=== PATIENT | female | born 1950 | race Caucasian/White ===

== ENCOUNTER → 2016-10-18 | Outpatient (CLI) | payer BC | LOC: VAS 16:11 | DX: R06.00 Dyspnea, unspecified (principal); R07.89 Other chest pain ==

== ENCOUNTER → 2016-11-02 | Outpatient (CLI) | payer BC | LOC: CARDREHAB 07:35 | DX: R06.09 Other forms of dyspnea (principal); R07.89 Other chest pain; E78.00 Pure hypercholesterolemia, unspecified | CPT/HCPCS: A9500 ==

== ENCOUNTER → 2016-11-06 | Outpatient (CLI) | payer BC | LOC: RAD 14:24 | DX: R06.09 Other forms of dyspnea (principal) ==

== ENCOUNTER → 2017-02-08 | Outpatient (CLI) | payer BC | LOC: RAD 10:01 | DX: M32.8 Other forms of systemic lupus erythematosus (principal); J98.4 Other disorders of lung ==

== ENCOUNTER → 2017-02-27 | Outpatient (CLI) | payer BC | LOC: LAB 11:01 → EDSTATUS 03-19 08:28 | DX: M35.9 Systemic involvement of connective tissue, unspecified (principal) ==

== ENCOUNTER → 2017-03-13 | Outpatient (REF) | LOC: LAB 14:19 | DX: K90.89 Other intestinal malabsorption (principal); D50.9 Iron deficiency anemia, unspecified ==

== ENCOUNTER → 2018-09-25 | Outpatient (CLI) | payer MEDICARE, BC ==
[2018-09-25 11:59] LABS: ALBUMIN 4.2 g/dL (3.5-5.0); DIRECT BILIRUBIN 0.4 mg/dL (0.0-0.4); TOTAL BILIRUBIN 0.4 mg/dL (0.2-1.3); TOTAL PROTEIN 7.3 g/dL (6.3-8.2)
== END ==
LOC: LAB 11:13
PROVIDERS: Internal Medicine
DX: E78.2 Mixed hyperlipidemia (principal); R94.5 Abnormal results of liver function studies

== ENCOUNTER → 2018-11-17 | Outpatient (CLI) | payer MEDICARE, BC | LOC: RAD 18:16 | DX: M25.551 Pain in right hip (principal); W19.XXXA Unspecified fall, initial encounter ==

== ENCOUNTER → 2018-12-03 | Outpatient (CLI) | payer MEDICARE, BC | LOC: RAD 06:46 | DX: M17.11 Unilateral primary osteoarthritis, right knee (principal) ==

== ENCOUNTER 2019-02-19 11:30 | Outpatient (RCR) | payer MEDICARE, BC | END 2019-03-12 | LOC: PT | DX: S76.011A Strain of muscle, fascia and tendon of right hip, initial encounter (principal) ==

== ENCOUNTER → 2019-04-13 | Outpatient (CLI) | payer MEDICARE, BC ==
[2019-04-13 14:06] LABS: URINE APPEARANCE CLOUDY; URINE BILIRUBIN NEGATIVE (NEGATIVE); URINE BLOOD TRACE (NEGATIVE); URINE COLOR YELLOW; URINE GLUCOSE NEGATIVE (NEGATIVE); URINE KETONE NEGATIVE (NEGATIVE); URINE LEUKOCYTE ESTERASE 2+ (NEGATIVE); URINE MUCUS PRESENT (NOT PRESENT); URINE NITRATE NEGATIVE (NEGATIVE); URINE PROTEIN(semi-quant) 1+ mg/dL (NEGATIVE); URINE UROBILINOGEN NORMAL (NORMAL); URINE WBC >50 /hpf (0-3)
== END ==
LOC: LAB 12:41
PROVIDERS: Internal Medicine Rheumatology
DX: M35.9 Systemic involvement of connective tissue, unspecified (principal); Z79.899 Other long term (current) drug therapy

== ENCOUNTER → 2019-07-21 | Outpatient (CLI) | payer MEDICARE, BC ==
[2019-07-21 12:07] LABS: EOS # 0.3 (0.04-0.40); EOS % 4.4 % (1.0-5.0); HEMATOCRIT 43.1 % (37.0-47.0); HEMOGLOBIN 13.8 g/dL (12.5-16.0); LYMPH# 2.1 (1.50-4.00); MEAN CELL VOLUME 96 fl (78-100); MEAN CORPUSCULAR HEMOGLOBIN 31 pg (27-31); MEAN CORPUSCULAR HGB CONC 32 g/dL (33-37); MEAN PLATELET VOLUME 10.1 fl (7.4-10.4); MONO # 0.6 (0.20-0.80); NEU # 3.4 (1.40-6.50); PLATELET COUNT 309 K/mm3 (130-400); RED CELL DISTRIBUTION WIDTH 14.6 % (11.5-14.5); WHITE BLOOD COUNT 6.4 K/mm3 (4.8-10.8)
[2019-07-21 12:20] LABS: ALBUMIN 4.2 g/dL (3.4-4.8)
[2019-07-21 12:21] LABS: CALCIUM 9.7 mg/dL (8.3-10.5)
[2019-07-21 12:23] LABS: TOTAL PROTEIN 7.4 g/dL (6.2-8.1)
[2019-07-21 12:25] LABS: TOTAL BILIRUBIN 0.4 mg/dL (0.2-1.2)
[2019-07-21 13:15] LABS: ERYTHROCYTE SEDIMENTATION RATE 23 mm/hr (0-30)
== END ==
LOC: LAB 11:54
PROVIDERS: Internal Medicine
DX: Z12.11 Encounter for screening for malignant neoplasm of colon (principal); D50.9 Iron deficiency anemia, unspecified; J45.30 Mild persistent asthma, uncomplicated; E78.2 Mixed hyperlipidemia; E53.8 Deficiency of other specified B group vitamins; K90.9 Intestinal malabsorption, unspecified; R20.2 Paresthesia of skin; R73.02 Impaired glucose tolerance (oral)

== ENCOUNTER 2019-08-18 15:30 | Outpatient (RCR) | payer MEDICARE, BC | END 2019-09-08 | disposition still patient (30) | LOC: PT | DX: M47.27 Other spondylosis with radiculopathy, lumbosacral region (principal) ==

== ENCOUNTER 2019-09-30 07:56 | Outpatient (RCR) | payer MEDICARE, BC | END 2019-10-02 14:04 | LOC: OPPGERO 07:56 | DX: F33.1 Major depressive disorder, recurrent, moderate (principal); F41.1 Generalized anxiety disorder; F43.10 Post-traumatic stress disorder, unspecified; E78.2 Mixed hyperlipidemia; M79.7 Fibromyalgia; R45.6 Violent behavior; F10.99 Alcohol use, unspecified with unspecified alcohol-induced disorder; J45.30 Mild persistent asthma, uncomplicated; G43.809 Other migraine, not intractable, without status migrainosus; Z63.5 Disruption of family by separation and divorce; Z79.82 Long term (current) use of aspirin; Z79.51 Long term (current) use of inhaled steroids; Z79.899 Other long term (current) drug therapy; Z91.5 Personal history of self-harm ==

== ENCOUNTER 2019-10-05 07:51 | Outpatient (RCR) | payer MEDICARE, BC | END 2019-10-30 14:26 | LOC: OPPGERO 07:51 | DX: F33.1 Major depressive disorder, recurrent, moderate (principal); F41.1 Generalized anxiety disorder; F43.10 Post-traumatic stress disorder, unspecified; G43.909 Migraine, unspecified, not intractable, without status migrainosus; J45.30 Mild persistent asthma, uncomplicated; E78.2 Mixed hyperlipidemia; M79.7 Fibromyalgia; R45.6 Violent behavior; F10.99 Alcohol use, unspecified with unspecified alcohol-induced disorder; Z63.5 Disruption of family by separation and divorce; K90.9 Intestinal malabsorption, unspecified; Z79.51 Long term (current) use of inhaled steroids; Z79.82 Long term (current) use of aspirin; Z79.899 Other long term (current) drug therapy ==

== ENCOUNTER → 2019-12-24 | Outpatient (CLI) | payer MEDICARE, BC | LOC: LAB 13:23 | DX: R05 Cough (principal); R06.02 Shortness of breath; R19.7 Diarrhea, unspecified; R11.0 Nausea ==

== ENCOUNTER → 2020-04-28 | Outpatient (CLI) | payer MEDICARE, BC ==
[2020-04-28 16:19] LABS: URINE APPEARANCE CLEAR; URINE BILIRUBIN NEGATIVE (NEGATIVE); URINE BLOOD TRACE (NEGATIVE); URINE COLOR YELLOW; URINE GLUCOSE NEGATIVE (NEGATIVE); URINE KETONE NEGATIVE (NEGATIVE); URINE LEUKOCYTE ESTERASE TRACE (NEGATIVE); URINE NITRATE NEGATIVE (NEGATIVE); URINE PROTEIN(semi-quant) NEGATIVE (NEGATIVE); URINE UROBILINOGEN NORMAL (NORMAL)
== END ==
LOC: LAB 15:44
PROVIDERS: Internal Medicine
DX: N30.00 Acute cystitis without hematuria (principal)

== ENCOUNTER → 2020-07-06 | Outpatient (CLI) | payer MEDICARE, BC ==
[2020-07-06 12:13] LABS: ALBUMIN 4.1 g/dL (3.4-4.8); POTASSIUM 4.2 mmol/L (3.5-5.1)
[2020-07-06 12:14] LABS: CALCIUM 9.2 mg/dL (8.3-10.5)
[2020-07-06 12:16] LABS: TOTAL PROTEIN 7.5 g/dL (6.2-8.1)
[2020-07-06 12:18] LABS: TOTAL BILIRUBIN 0.5 mg/dL (0.2-1.2)
[2020-07-06 12:36] LABS: EOS # 0.2 (0.04-0.40); EOS % 3.4 % (1.0-5.0); HEMATOCRIT 41.2 % (37.0-47.0); HEMOGLOBIN 13.2 g/dL (12.5-16.0); LYMPH# 2.2 (1.50-4.00); MEAN CELL VOLUME 95 fl (78-100); MEAN CORPUSCULAR HEMOGLOBIN 31 pg (27-31); MEAN CORPUSCULAR HGB CONC 32 g/dL (33-37); MONO # 0.5 (0.20-0.80); PLATELET COUNT 309 K/mm3 (130-400); RED BLOOD COUNT 4.32 M/mm3 (4.10-5.30); RED CELL DISTRIBUTION WIDTH 13.9 % (11.5-14.5)
[2020-07-06 13:07] LABS: ERYTHROCYTE SEDIMENTATION RATE 21 mm/hr (0-30)
[2020-07-06 13:12] LABS: PH-URINE 5.5 (5.0 - 8.0); URINE APPEARANCE CLEAR; URINE BILIRUBIN NEGATIVE (NEGATIVE); URINE BLOOD NEGATIVE (NEGATIVE); URINE COLOR YELLOW; URINE GLUCOSE NEGATIVE (NEGATIVE); URINE KETONE NEGATIVE (NEGATIVE); URINE LEUKOCYTE ESTERASE 1+ (NEGATIVE); URINE NITRATE NEGATIVE (NEGATIVE); URINE PROTEIN(semi-quant) TRACE mg/dL (NEGATIVE); URINE UROBILINOGEN NORMAL (NORMAL)
== END ==
LOC: LAB 11:34
PROVIDERS: Internal Medicine
DX: Z12.11 Encounter for screening for malignant neoplasm of colon (principal); N30.00 Acute cystitis without hematuria; K90.9 Intestinal malabsorption, unspecified; D50.9 Iron deficiency anemia, unspecified; E53.8 Deficiency of other specified B group vitamins; R73.02 Impaired glucose tolerance (oral); E78.2 Mixed hyperlipidemia; J45.30 Mild persistent asthma, uncomplicated; R20.2 Paresthesia of skin

== ENCOUNTER → 2020-08-30 | Outpatient (CLI) | payer MEDICARE, BC ==
[2020-08-30 14:39] LABS: EOS # 0.2 (0.04-0.40); EOS % 2.3 % (1.0-5.0); HEMATOCRIT 43.7 % (37.0-47.0); HEMOGLOBIN 14.3 g/dL (12.5-16.0); LYMPH# 3.6 (1.50-4.00); MEAN CELL VOLUME 95 fl (78-100); MEAN CORPUSCULAR HEMOGLOBIN 31 pg (27-31); MEAN CORPUSCULAR HGB CONC 33 g/dL (33-37); MEAN PLATELET VOLUME 10.5 fl (7.4-10.4); MONO # 0.8 (0.20-0.80); NEU # 5.3 (1.40-6.50); PLATELET COUNT 314 K/mm3 (130-400); RED BLOOD COUNT 4.61 M/mm3 (4.10-5.30); RED CELL DISTRIBUTION WIDTH 14.2 % (11.5-14.5)
[2020-08-30 14:48] LABS: URINE APPEARANCE CLOUDY; URINE BILIRUBIN NEGATIVE (NEGATIVE); URINE BLOOD NEGATIVE (NEGATIVE); URINE COLOR YELLOW; URINE GLUCOSE NEGATIVE (NEGATIVE); URINE KETONE NEGATIVE (NEGATIVE); URINE LEUKOCYTE ESTERASE 1+ (NEGATIVE); URINE NITRATE NEGATIVE (NEGATIVE); URINE PROTEIN(semi-quant) 1+ mg/dL (NEGATIVE); URINE UROBILINOGEN NORMAL (NORMAL)
[2020-08-30 14:49] LABS: URINE MUCUS PRESENT (NOT PRESENT)
[2020-08-30 14:50] LABS: ALBUMIN 4.4 g/dL (3.4-4.8); POTASSIUM 4.1 mmol/L (3.5-5.1)
[2020-08-30 14:51] LABS: CALCIUM 9.3 mg/dL (8.3-10.5)
[2020-08-30 14:52] LABS: TOTAL PROTEIN 7.3 g/dL (6.2-8.1)
[2020-08-30 14:54] LABS: TOTAL BILIRUBIN 0.4 mg/dL (0.2-1.2)
[2020-08-30 15:27] LABS: ERYTHROCYTE SEDIMENTATION RATE 10 mm/hr (0-30)
== END ==
LOC: LAB 14:16
PROVIDERS: Internal Medicine
DX: M17.0 Bilateral primary osteoarthritis of knee (principal)

== ENCOUNTER → 2021-02-13 | Outpatient (CLI) | payer MEDICARE, BC ==
[2021-02-13 16:38] LABS: BASO # 0.04 (0.02-0.10); EOS # 0.22 (0.04-0.40); EOS % 2.2 % (1.0-5.0); HEMATOCRIT 42.6 % (37.0-47.0); HEMOGLOBIN 14.3 g/dL (12.5-16.0); LYMPH# 2.82 (1.50-4.00); MEAN CELL VOLUME 93 fl (78-100); MEAN CORPUSCULAR HEMOGLOBIN 31 pg (27-31); MEAN CORPUSCULAR HGB CONC 34 g/dL (33-37); MONO # 0.71 (0.20-0.80); NEU # 6.17 (1.40-6.50); PLATELET COUNT 283 K/mm3 (130-400); RED BLOOD COUNT 4.58 M/mm3 (4.10-5.30); RED CELL DISTRIBUTION WIDTH 13.7 % (11.5-14.5)
[2021-02-13 16:48] LABS: ALBUMIN 4.1 g/dL (3.4-4.8); POTASSIUM 4.1 mmol/L (3.5-5.1)
[2021-02-13 16:49] LABS: CALCIUM 9.2 mg/dL (8.3-10.5)
[2021-02-13 16:51] LABS: TOTAL PROTEIN 7.4 g/dL (6.2-8.1)
[2021-02-13 16:52] LABS: TOTAL BILIRUBIN 0.4 mg/dL (0.2-1.2)
[2021-02-13 17:00] LABS: D-DIMER 0.52 mg/L FEU (0.15-0.50)
== END ==
LOC: LAB 16:22
PROVIDERS: Internal Medicine
DX: R06.00 Dyspnea, unspecified (principal)

== ENCOUNTER → 2021-02-22 | Outpatient (CLI) | payer MEDICARE, BC | LOC: RAD 08:35 | DX: K76.0 Fatty (change of) liver, not elsewhere classified (principal); R06.00 Dyspnea, unspecified; Z90.49 Acquired absence of other specified parts of digestive tract | CPT/HCPCS: Q9967 ==

== ENCOUNTER → 2021-03-03 | Outpatient (CLI) | payer MEDICARE, BC | LOC: CARDREHAB 10:25 → CARDLAB 15:27 | DX: R06.00 Dyspnea, unspecified (principal) | CPT/HCPCS: A9500 ==

== ENCOUNTER → 2021-05-22 | Outpatient (CLI) | payer MEDICARE, BC ==
[2021-05-22 14:46] LABS: BASO # 0.03 (0.02-0.10); EOS # 0.19 (0.04-0.40); EOS % 1.8 % (1.0-5.0); HEMATOCRIT 43.9 % (37.0-47.0); HEMOGLOBIN 14.4 g/dL (12.5-16.0); LYMPH# 2.77 (1.50-4.00); MEAN CELL VOLUME 95 fl (78-100); MEAN CORPUSCULAR HEMOGLOBIN 31 pg (27-31); MEAN CORPUSCULAR HGB CONC 33 g/dL (33-37); MEAN PLATELET VOLUME 10.1 fl (7.4-10.4); MONO # 0.86 (0.20-0.80); NEU # 6.91 (1.40-6.50); PLATELET COUNT 303 K/mm3 (130-400); RED BLOOD COUNT 4.61 M/mm3 (4.10-5.30); RED CELL DISTRIBUTION WIDTH 14.1 % (11.5-14.5); WHITE BLOOD COUNT 10.8 K/mm3 (4.8-10.8)
[2021-05-22 15:15] LABS: ALBUMIN 4.1 g/dL (3.4-4.8)
[2021-05-22 15:16] LABS: POTASSIUM 3.8 mmol/L (3.5-5.1)
[2021-05-22 15:17] LABS: CALCIUM 9.4 mg/dL (8.3-10.5)
[2021-05-22 15:18] LABS: TOTAL PROTEIN 7.4 g/dL (6.2-8.1)
[2021-05-22 15:20] LABS: TOTAL BILIRUBIN 0.5 mg/dL (0.2-1.2)
[2021-05-22 16:36] LABS: ERYTHROCYTE SEDIMENTATION RATE 28 mm/hr (0-30)
[2021-05-23 01:41] LABS: CORTISOL RANDOM <1 ug/dL (3-20)
[2021-05-24 17:37] LABS: ADRENOCORTICOTROPIC HORMONE <5 pg/mL (5-27)
== END ==
LOC: LAB 14:21
PROVIDERS: Internal Medicine
DX: M35.1 Other overlap syndromes (principal); K90.9 Intestinal malabsorption, unspecified; R53.83 Other fatigue

== ENCOUNTER → 2021-06-05 | Outpatient (CLI) | payer MEDICARE, BC ==
[2021-06-12 00:26] LABS: CORTISOL,URINE 3.4 mcg/24 h (3.5-45)
== END ==
LOC: LAB 11:14
PROVIDERS: Internal Medicine
DX: R53.83 Other fatigue (principal)

== ENCOUNTER → 2021-06-08 | Outpatient (CLI) | payer MEDICARE, BC ==
[2021-06-08 12:43] VITALS: BP 142/77
[2021-06-08 13:34] LABS: POTASSIUM 3.8 mmol/L (3.5-5.1)
[2021-06-08 14:41] VITALS: BP 164/74
[2021-06-09 23:51] LABS: ADRENOCORTICOTROPIC HORMONE 55 pg/mL (5-27)
== END ==
LOC: AMSURD 05:35 → LAB 12:32
PROVIDERS: Internal Medicine
DX: E27.40 Unspecified adrenocortical insufficiency (principal)
CPT/HCPCS: J0834

== ENCOUNTER → 2021-09-29 | Outpatient (CLI) | payer MEDICARE, BC | LOC: RAD 09-28 12:44 | DX: E27.40 Unspecified adrenocortical insufficiency (principal); K76.0 Fatty (change of) liver, not elsewhere classified; K63.89 Other specified diseases of intestine | CPT/HCPCS: Q9967 ==

== ENCOUNTER → 2022-01-12 | Outpatient (CLI) | payer MEDICARE, BC ==
[2022-01-12 14:07] LABS: URINE WBC 0 /hpf (0-3)
[2022-01-12 14:19] LABS: BASO # 0.03 K/mm3 (0.02-0.10); EOS # 0.11 K/mm3 (0.04-0.40); EOS % 1.1 % (1.0-5.0); HEMATOCRIT 43.3 % (37.0-47.0); HEMOGLOBIN 14.4 g/dL (12.5-16.0); MEAN CELL VOLUME 93 fl (78-100); MEAN CORPUSCULAR HEMOGLOBIN 31 pg (27-31); MEAN CORPUSCULAR HGB CONC 33 g/dL (33-37); MEAN PLATELET VOLUME 10.6 fl (7.4-10.4); MONO # 0.43 K/mm3 (0.20-0.80); NEU # 6.73 K/mm3 (1.40-6.50); PLATELET COUNT 275 K/mm3 (130-400); RED BLOOD COUNT 4.64 M/mm3 (4.10-5.30); RED CELL DISTRIBUTION WIDTH 13.6 % (11.5-14.5); WHITE BLOOD COUNT 9.9 K/mm3 (4.8-10.8)
[2022-01-12 14:26] LABS: POTASSIUM 3.3 mmol/L (3.5-5.1)
[2022-01-12 14:27] LABS: CALCIUM 9.2 mg/dL (8.3-10.5)
[2022-01-12 14:29] LABS: TOTAL PROTEIN 7.3 g/dL (6.2-8.1)
[2022-01-12 14:31] LABS: TOTAL BILIRUBIN 0.4 mg/dL (0.2-1.2)
[2022-01-12 14:56] LABS: URINE APPEARANCE CLEAR; URINE BILIRUBIN 2+ (NEGATIVE); URINE BLOOD 50 ery/uL (NEGATIVE); URINE COLOR YELLOW; URINE GLUCOSE NEGATIVE (NEGATIVE); URINE KETONE NEGATIVE (NEGATIVE); URINE LEUKOCYTE ESTERASE NEGATIVE (NEGATIVE); URINE MUCUS PRESENT (NOT PRESENT); URINE NITRATE NEGATIVE (NEGATIVE); URINE PROTEIN(semi-quant) TRACE (NEGATIVE); URINE UROBILINOGEN NORMAL (NORMAL)
[2022-01-12 18:43] LABS: ERYTHROCYTE SEDIMENTATION RATE 23 mm/hr (0-30)
== END ==
LOC: LAB 13:56
PROVIDERS: Internal Medicine
DX: Z01.31 Encounter for examination of blood pressure with abnormal findings (principal); K90.9 Intestinal malabsorption, unspecified; E78.2 Mixed hyperlipidemia; K83.01 Primary sclerosing cholangitis

== ENCOUNTER → 2022-05-29 | Outpatient (CLI) | payer MEDICARE, BC ==
[2022-05-29 12:05] LABS: BASO # 0.03 K/mm3 (0.02-0.10); EOS # 0.33 K/mm3 (0.04-0.40); EOS % 3.7 % (1.0-5.0); HEMATOCRIT 41.3 % (37.0-47.0); HEMOGLOBIN 13.7 g/dL (12.5-16.0); LYMPH# 3.65 K/mm3 (1.50-4.00); MEAN CELL VOLUME 96 fl (78-100); MEAN CORPUSCULAR HEMOGLOBIN 32 pg (27-31); MEAN CORPUSCULAR HGB CONC 33 g/dL (33-37); MEAN PLATELET VOLUME 10.4 fl (7.4-10.4); MONO # 0.74 K/mm3 (0.20-0.80); NEU # 4.19 K/mm3 (1.40-6.50); PLATELET COUNT 315 K/mm3 (130-400); RED BLOOD COUNT 4.31 M/mm3 (4.10-5.30); RED CELL DISTRIBUTION WIDTH 13.8 % (11.5-14.5)
[2022-05-29 12:16] LABS: ALBUMIN 3.9 g/dL (3.4-4.8); POTASSIUM 3.8 mmol/L (3.5-5.1)
[2022-05-29 12:17] LABS: CALCIUM 9.1 mg/dL (8.3-10.5)
[2022-05-29 12:18] LABS: TOTAL PROTEIN 7.1 g/dL (6.2-8.1)
[2022-05-29 12:20] LABS: TOTAL BILIRUBIN 0.7 mg/dL (0.2-1.2)
[2022-05-29 13:08] LABS: ERYTHROCYTE SEDIMENTATION RATE 41 mm/hr (0-30)
== END ==
LOC: LAB 11:46
PROVIDERS: Internal Medicine
DX: Z12.39 Encounter for other screening for malignant neoplasm of breast (principal); J45.30 Mild persistent asthma, uncomplicated; K83.01 Primary sclerosing cholangitis; E27.3 Drug-induced adrenocortical insufficiency; E78.2 Mixed hyperlipidemia; M35.1 Other overlap syndromes; K90.9 Intestinal malabsorption, unspecified; M25.561 Pain in right knee; R53.83 Other fatigue; M85.80 Other specified disorders of bone density and structure, unspecified site